=== PATIENT | female | born 2000 | race Hispanic/Latino ===

== ENCOUNTER 2020-02-21 06:47 | Emergency (ER) | payer OTHER ==
[~2020-02-21] VITALS: Ht 162.6 cm; Wt 49.2 kg
[2020-02-21] MEDS ORDERED: MULTCAP PO (06:56)
[2020-02-21] MEDS ORDERED: CALC500C16 PO (06:56)
[2020-02-21] MEDS ORDERED: ONDANSETRON 4MG/2ML VIAL (J2405) IV ONE (07:15)
[2020-02-21] MEDS ORDERED: NS 1,000 ML IV ONE (07:15)
[2020-02-21 07:47] LABS: BASO % 0.1 % (0.0-1.0); EOS % 0.1 % (0.0-3.0); HEMATOCRIT 41.7 % (36.0-47.0); HEMOGLOBIN 14.5 g/dl (12.0-15.5); LYMPH # 1.3 10^3/uL (1.5-5.0); LYMPH % 8.8 % (24.0-44.0); MEAN CORPUSCULAR HEMOGLOBIN 31.5 pg (27.0-33.0); MEAN CORPUSCULAR HGB CONC 34.8 g/dl (32.0-36.5); MEAN CORPUSCULAR VOLUME 90.5 fl (80.0-96.0); MONO # 0.6 10^3/uL (0.0-0.8); MONO % 3.9 % (0.0-5.0); NEUTROPHILS # 12.4 10^3/uL (1.5-8.5); NEUTROPHILS % 86.8 % (36.0-66.0); PLATELET COUNT, AUTOMATED 215 10^3/uL (150-450); RED BLOOD COUNT 4.61 10^6/uL (4.00-5.40); WHITE BLOOD COUNT 14.3 10^3/uL (4.0-10.0)
[2020-02-21] MEDS ORDERED: KETOROLAC 30 MG/ML VIAL (J1885) IV ONE (08:00)
[2020-02-21 08:02] LABS: ALBUMIN 4.4 GM/DL (3.2-5.2); BILIRUBIN,DIRECT 0.1 MG/DL (0.0-0.2); BILIRUBIN,TOTAL 0.4 MG/DL (0.2-1.0)
[2020-02-21 08:09] LABS: INFLUENZA A AMPLIFICATION NEGATIVE (NEGATIVE); INFLUENZA B AMPLIFICATION NEGATIVE (NEGATIVE)
[2020-02-21] MEDS: GASTROGRAFIN SOLUTION 30ML PO SCH ×2 (08:10→08:38)
[2020-02-21] MEDS ORDERED: ISOVUE-370 76% 100ML VIAL (Q9967) As Ordered ONE (09:10)
--- NOTE | 2020-02-21 09:50 | REP ---
Clinical: Acute abdominal pain with nausea and vomiting. Technique: Axial contrast enhanced images from the lung bases to the pubic symphysis using oral (per protocol) and 100 ml Isovue 370 intravenous contrast material with coronal and sagittal re-formations. Findings: Submucosal edema and thickening involving the splenic flexure through sigmoid colon suggests infectious/inflammatory colitis and correlation is recommended. Remainder of the small and large bowel is unremarkable and there is no evidence for obstruction or perforation. Liver, spleen, pancreas, gallbladder, bilateral adrenal glands and kidneys are normal. Pelvis demonstrates normal bladder and age-appropriate uterus/adnexa. No ascites. No free air. No adenopathy. Abdominal aorta and vasculature normal. Musculoskeletal structures are intact. Lung bases are clear. Impression: Findings suggesting infectious/inflammatory colitis involving the descending colon. No evidence for obstruction or perforation. No ascites. Electronically Signed by Lewis Christian MD 02/21/2020 09:41 A
[2020-02-21] MEDS ORDERED: CIPR-249 PO (09:58)
[2020-02-21] MEDS ORDERED: FLAG500T PO (09:58)
[2020-02-21 10:26] VITALS: BP 99/69
--- NOTE | 2020-02-21 10:40 | ED PDOC ---
Post-Departure Follow-Up pt called regarding and cipro/flagyl. advised pt to wait 3-4 hours after dose of antibiotic before . also advised may have increased diarrhea while mother is on antibiotics. MASSIMO RICK PA-C Feb 21, 2020 10:40
== END 2020-02-21 10:30 | disposition home or self-care (01) ==
LOC: M ED 06:47
DX: K52.9 Noninfective gastroenteritis and colitis, unspecified (principal)
CPT/HCPCS: 74177; 80047; 80076; 81001; 83690; 84702; 85025; 87502; 87507; 96361; 96374; 96375; 99284; J1885; J2405; Q9963; Q9967

== ENCOUNTER 2020-03-19 22:40 | Emergency (ER) | payer OTHER ==
[~2020-03-19] VITALS: Ht 162.6 cm; Wt 51.8 kg
[~2020-03-19 22:40] MED LIST: CALC500C16 PO; CIPR-249 PO; FLAG500T PO; MULTCAP PO
[2020-03-19] MEDS ORDERED: NS 1,000 ML IV ONE (23:30)
[2020-03-19] MEDS ORDERED: ONDANSETRON 4MG/2ML VIAL IV ONE (23:30)
[2020-03-19] MEDS ORDERED: MORPHINE 4 MG/ML 1ML VIAL/SYRINGE (J2270) IV ONE (23:30)
[2020-03-19 23:33] LABS: APPEARANCE, URINE CLEAR (CLEAR); BACTERIA, URINE AUTO NEGATIVE (NEGATIVE); BILIRUBIN, URINE AUTO NEGATIVE (NEGATIVE); BLOOD, URINE BLOOD 2+ (NEGATIVE); COLOR, URINE YELLOW (YELLOW); GLUCOSE, URINE (UA) AUTO NEGATIVE (NEGATIVE); KETONE, URINE AUTO TRACE mg/dL (NEGATIVE); LEUKOCYTE ESTERASE, URINE AUTO NEGATIVE (NEGATIVE); NITRITE, URINE AUTO NEGATIVE (NEGATIVE); PROTEIN, URINE AUTO NEGATIVE (NEGATIVE); RBC, URINE AUTO 35 /HPF (0-3); SPECIFIC GRAVITY URINE AUTO 1.028 (1.002-1.035); SQUAMOUS EPITHELIAL CELL UR AU 1 /HPF (0-6); UROBILINOGEN, URINE AUTO 0.2 mg/dL (0.0-2.0); WBC, URINE AUTO 1 /HPF (0-3)
[2020-03-19 23:35] LABS: BASO % 0.6 % (0.0-1.0); EOS # 0.1 10^3/uL (0.0-0.5); EOS % 1.7 % (0.0-3.0); HEMATOCRIT 37.6 % (36.0-47.0); LYMPH # 3.6 10^3/uL (1.5-5.0); LYMPH % 50.2 % (24.0-44.0); MEAN CORPUSCULAR HEMOGLOBIN 31.7 pg (27.0-33.0); MEAN CORPUSCULAR HGB CONC 34.6 g/dl (32.0-36.5); MEAN CORPUSCULAR VOLUME 91.7 fl (80.0-96.0); MONO # 0.3 10^3/uL (0.0-0.8); MONO % 4.6 % (0.0-5.0); NEUTROPHILS # 3.1 10^3/uL (1.5-8.5); NEUTROPHILS % 42.6 % (36.0-66.0); PLATELET COUNT, AUTOMATED 223 10^3/uL (150-450); WHITE BLOOD COUNT 7.3 10^3/uL (4.0-10.0)
[2020-03-19 23:58] LABS: ALBUMIN 3.9 GM/DL (3.2-5.2); ALT/SGPT 27 U/L (12-78); BILIRUBIN,DIRECT < 0.1 MG/DL (0.0-0.2); BILIRUBIN,TOTAL 0.3 MG/DL (0.2-1.0); BLOOD UREA NITROGEN 17 MG/DL (7-18); CALCIUM LEVEL 8.7 MG/DL (8.5-10.1); CARBON DIOXIDE LEVEL 30 MEQ/L (21-32); CHLORIDE LEVEL 107 MEQ/L (98-107); GLUCOSE, FASTING 104 MG/DL (70-100); LIPASE 180 U/L (73-393); POTASSIUM SERUM 3.7 MEQ/L (3.5-5.1); SODIUM LEVEL 141 MEQ/L (136-145); TOTAL PROTEIN 7.4 GM/DL (6.4-8.2)
[2020-03-20] LABS: HCG, SERUM QUALITATIVE NEGATIVE (NEGATIVE)
--- NOTE | 2020-03-20 00:39 | REPVR ---
PROCEDURE INFORMATION: Exam: CT Abdomen And Pelvis Without Contrast Exam date and time: 03/20/2020 12:11 AM Age: 19 years old Clinical indication: Abdominal pain; Generalized; Additional info: Colic TECHNIQUE: Imaging protocol: Computed tomography of the abdomen and pelvis without contrast. Axial, coronal and sagittal reformatted images were created and reviewed. Radiation optimization: All CT scans at this facility use at least one of these dose optimization techniques: automated exposure control; mA and/or kV adjustment per patient size (includes targeted exams where dose is matched to clinical indication); or iterative reconstruction. COMPARISON: CT ABD/PEL W/IV ORAL CONTRAS 02/21/2020 9:29 AM FINDINGS: Liver: Unremarkable. Gallbladder and bile ducts: No radiodense gallstones. No biliary ductal dilatation. Pancreas: Unremarkable. Spleen: Unremarkable. Adrenals: Unremarkable. Kidneys and ureters: No mass. No radiodense calculi. No hydronephrosis. Stomach and bowel: No bowel wall thickening. No obstruction. No pneumatosis. Appendix: Normal. Intraperitoneal space: No free fluid. No organized fluid collection. No free air. Vasculature: Unremarkable. No aneurysm. Lymph nodes: No pathologically enlarged lymph nodes. Bladder: Mild circumferential urinary bladder wall thickening, likely secondary to underdistention. Reproductive: Unremarkable. Bones/joints: No acute osseous abnormality. Soft tissues: Unremarkable. IMPRESSION: 1. Limited noncontrast examination without CT evidence of acute intra-abdominal or pelvic pathology. 2. Additional findings, as above. Electronically signed by: Sharan Balbuena On 03/20/2020 00:38:41 AM
[2020-03-20] MEDS ORDERED: PHENAZOPYRIDINE 100 MG TAB PO ONE (00:45)
[2020-03-20] MEDS ORDERED: BACTRIM 160MG/800MG DS TAB PO ONE (00:45)
[2020-03-20 01:30] VITALS: BP 129/78
[2020-03-20] MEDS ORDERED: BACT800T5 PO (01:41)
[2020-03-20] MEDS ORDERED: PYRI1TAB5 PO (01:41)
[2020-03-20] MEDS ORDERED: ZOFR4TAB16 PO (01:41)
== END 2020-03-20 01:48 | disposition home or self-care (01) ==
LOC: M ED 22:40
DX: N30.90 Cystitis, unspecified without hematuria (principal); N32.89 Other specified disorders of bladder
CPT/HCPCS: 74176; 80048; 80076; 81001; 83690; 84703; 85025; 96361; 96374; 96375; 99284; J2270; J2405

== ENCOUNTER 2020-04-01 01:14 | Emergency (ER) | payer OTHER ==
[~2020-04-01] VITALS: Ht 162.6 cm; Wt 53.1 kg
[~2020-04-01 01:14] MED LIST changes: +BACT800T5 PO; +PYRI1TAB5 PO; +ZOFR4TAB16 PO
[2020-04-01] MEDS ORDERED: ONDANSETRON 4MG/2ML VIAL As Ordered ONE (02:20)
[2020-04-01] MEDS ORDERED: ONDANSETRON 4MG/2ML VIAL IV ONE (02:45)
[2020-04-01] MEDS ORDERED: NS 1,000 ML IV ONE (02:45)
[2020-04-01 02:58] LABS: BASO % 0.3 % (0.0-1.0); EOS # 0.1 10^3/uL (0.0-0.5); EOS % 0.8 % (0.0-3.0); HEMATOCRIT 35.6 % (36.0-47.0); HEMOGLOBIN 12.2 g/dl (12.0-15.5); LYMPH # 2.5 10^3/uL (1.5-5.0); LYMPH % 26.2 % (24.0-44.0); MEAN CORPUSCULAR HEMOGLOBIN 31.4 pg (27.0-33.0); MEAN CORPUSCULAR HGB CONC 34.3 g/dl (32.0-36.5); MEAN CORPUSCULAR VOLUME 91.8 fl (80.0-96.0); MONO # 0.5 10^3/uL (0.0-0.8); MONO % 4.9 % (0.0-5.0); NEUTROPHILS # 6.4 10^3/uL (1.5-8.5); NEUTROPHILS % 67.4 % (36.0-66.0); PLATELET COUNT, AUTOMATED 206 10^3/uL (150-450); RED BLOOD COUNT 3.88 10^6/uL (4.00-5.40); WHITE BLOOD COUNT 9.5 10^3/uL (4.0-10.0)
[2020-04-01 03:21] LABS: ALBUMIN 3.8 GM/DL (3.2-5.2); ALT/SGPT 38 U/L (12-78); BILIRUBIN,DIRECT < 0.1 MG/DL (0.0-0.2); BILIRUBIN,TOTAL 0.3 MG/DL (0.2-1.0); LIPASE 139 U/L (73-393); TOTAL PROTEIN 6.9 GM/DL (6.4-8.2)
--- NOTE | 2020-04-01 03:38 | REPVR ---
PROCEDURE INFORMATION: Exam: US Abdomen Limited, Right Upper Quadrant Exam date and time: 04/01/2020 3:14 AM Age: 19 years old Clinical indication: Abdominal pain; Acute; Additional info: Ruq abd pain TECHNIQUE: Imaging protocol: Real-time ultrasound of the abdomen with image documentation. Examination was focused on the right upper quadrant. COMPARISON: CT ABD PELVIS W/O CONTRAST 03/20/2020 12:15 AM FINDINGS: Liver: Normal. No masses. Gallbladder: Normal. No gallstones. There is no gallbladder wall thickening. Common bile duct: Normal. No stones. No dilation. Pancreas: Visualized pancreas is unremarkable. Right kidney: Normal. No mass. No hydronephrosis. IMPRESSION: No acute findings. Electronically signed by: Balta Masterson On 04/01/2020 03:37:59 AM
[2020-04-01 03:40] LABS: HCG, SERUM QUALITATIVE NEGATIVE (NEGATIVE)
[2020-04-01] MEDS ORDERED: ZOFR4TAB16 PO (05:17)
[2020-04-01 05:43] VITALS: BP 103/58
== END 2020-04-01 05:44 | disposition home or self-care (01) ==
LOC: M ED 01:14
DX: R10.11 Right upper quadrant pain (principal); R11.2 Nausea with vomiting, unspecified
CPT/HCPCS: 76705; 80047; 80076; 81001; 83690; 84703; 85025; 96361; 96374; 99284; J2405

== ENCOUNTER 2021-03-20 14:46 | Outpatient (CLI) | payer OTHER ==
[~2021-03-20] VITALS: Ht 162.6 cm; Wt 60.7 kg
[2021-03-20 15:06] VITALS: BP 109/68
[2021-03-20 17:45] VITALS: BP 117/71
[2021-03-20 19:23] VITALS: BP 106/63
[2021-03-20 19:43] LABS: HEMATOCRIT 29.4 % (36.0-47.0); HEMOGLOBIN 9.9 g/dl (12.0-15.5); MEAN CORPUSCULAR HEMOGLOBIN 30.5 pg (27.0-33.0); MEAN CORPUSCULAR HGB CONC 33.7 g/dl (32.0-36.5); MEAN CORPUSCULAR VOLUME 90.5 fl (80.0-96.0); PLATELET COUNT, AUTOMATED 166 10^3/uL (150-450); RED BLOOD COUNT 3.25 10^6/uL (4.00-5.40); WHITE BLOOD COUNT 6.3 10^3/uL (4.0-10.0)
[2021-03-20 20:07] LABS: ALBUMIN 2.7 GM/DL (3.2-5.2); ALT/SGPT 15 U/L (12-78); BILIRUBIN,DIRECT < 0.1 MG/DL (0.0-0.2); BILIRUBIN,TOTAL 0.3 MG/DL (0.2-1.0); TOTAL PROTEIN 5.9 GM/DL (6.4-8.2)
--- NOTE | 2021-03-20 21:38 | IPN ---
PROGRESS NOTE DATE: 03/20/2021 SUBJECTIVE: Kiara is a 20-year-old 3, para 1, 0, 1, 1 at reported 33 and 1/7 weeks, EDC of 05/07/2021 based on last menstrual period, she presents to labor and delivery today with a report of itching all over her entire body including her abdomen, hands and feet. This started approximately three weeks ago and has worsened over the last few days. She denies vaginal bleeding and leakage of fluid. She denies regular painful contractions and the fetus has been active. She is an unregistered patient. She does not have a care provider in the area. She moved here approximately one month ago on February 21. She reports that she had been getting care in the [facility]. There have been several attempts over the last three hours to retrieve her medical records and they have been thus far unsuccessful. So her history is based on a verbal report from the patient. OBSTETRIC HISTORY: In 2015, elective termination of . On 02/11/2019, vaginal delivery at 38 weeks gestation following an induction of labor due to cholestasis. She does report that she had intra- preeclampsia and then had a uterine infection likely chorioamnionitis from what the patient described that was diagnosed at the time of delivery. OBSTETRIC LABS: We do have a view of that through her patient portal that she shared with us on her mobile phone. Her blood type is O+. Antibody screen is negative. Gestational diabetic screen normal at 115. Gonorrhea and Chlamydia negative. Urine culture no growth. Rubella equivocal. Hepatitis B surface antigen negative. Hepatitis C antibody negative. Hemoglobin A1C was 4.6. PAST MEDICAL HISTORY: Noncontributory. PAST SURGICAL HISTORY: Elective termination of . FAMILY HISTORY: Diabetes. SOCIAL HISTORY: She is to an active duty soldier. She is a nonsmoker. Denies alcohol and drug use. She denies history of STDs and denies history of abuse; physical, sexual and emotional. ALLERGIES: No known drug allergies. MEDICATIONS: None. She reports she is not taking her vitamin. OBJECTIVE: Temperature 97.6, pulse 69, respirations 18, blood pressures are completely normotensive; upon arrival it was 109/68 and several hours later it was 117/71. The heart rate is 135 with moderate variability. Positive accelerations noted. No decelerations observed. There is an occasional contraction. Sterile vaginal exam is deferred. Her abdomen appears soft and nontender, gravid, there is no rash. It does not appear that she has created any petechiae or scratches with her itching. ASSESSMENT: Intrauterine at 33 and 1/7 weeks. heart rate is category 1. PLAN: Liver profile, CBC and bile acids. I did review with the patient that the bile acids take approximately 7 to 10 days to return the results and that it is imperative that she seek care immediately. She has been in the area for over a month and has yet to do so. She was provided with three care providers in the area that she can reach out to to schedule an appointment. My plan is to discharge her home as long as her liver enzymes are normal. She is to call [facility] to access her bile acid report in one week's time to see if they have returned a result. I did review signs and symptoms of labor, movement counts, danger signs to report and access to this hospital for emergencies. The patient had all of her questions answered and once labs are returned, she maybe discharged home.
== END 2021-03-20 20:15 | disposition home or self-care (01) ==
LOC: M LDO 14:46
PROVIDERS: ATTEND Advanced Practice Midwife
DX: O99.713 Diseases of the skin and subcutaneous tissue complicating pregnancy, third trimester (principal); L29.9 Pruritus, unspecified; Z3A.33 33 weeks gestation of pregnancy
CPT/HCPCS: 36415; 59025; 80076; 82239; 85027; G0378; G0463

== ENCOUNTER → 2021-03-29 | Outpatient (REF) | payer OTHER ==
[~2021-03-29] MED LIST changes: +URSO300C3 PO
== END ==
LOC: M SFHCWAGY 14:55
PROVIDERS: ATTEND Advanced Practice Midwife
DX: O99.613 Diseases of the digestive system complicating pregnancy, third trimester (principal)

== ENCOUNTER 2021-04-02 09:05 | Outpatient (CLI) | payer OTHER ==
[~2021-04-02] VITALS: Ht 162.6 cm; Wt 61.8 kg
[~2021-04-02 09:05] MED LIST changes: -URSO300C3 PO
[2021-04-02] MEDS ORDERED: URSO300C3 PO (09:16)
[2021-04-02 09:20] VITALS: BP 124/74
[2021-04-02] MEDS ORDERED: BETAMETHASONE SOLUSPAN 6MG/ML 5ML VIAL (J0702 PER 3MG) IM ONE (09:25)
[2021-04-02 09:57] VITALS: BP 97/54
--- NOTE | 2021-04-22 13:01 | IPNPDOC ---
Obstetrical Progress Note Date of Service April 02, 2021 Subjective Patient presents for betamethasone injection. A pre-37 week delivery is planned. She presented to the hospital only for this injection and had no other complaints. She denied any vaginal bleeding, loss of fluid or uterine contractions. She reported regular movement. Her blood pressure was normotensive, had a normal heart rate, and was afebrile. Antepartum testing reassuring , thus far. She was discharged home with routine third trimester precautions. Assessment and Plan Status: Reassuring Additional Comments Return in 24 hours for second betamethasone injection PONCHO TREADWELL DO April 22, 2021 13:01
== END 2021-04-02 10:06 | disposition home or self-care (01) ==
LOC: M LDO 09:05
PROVIDERS: ATTEND Advanced Practice Midwife
DX: O26.613 Liver and biliary tract disorders in pregnancy, third trimester (principal); K83.1 Obstruction of bile duct; Z3A.35 35 weeks gestation of pregnancy
CPT/HCPCS: 96372; G0378; G0463; J0702

== ENCOUNTER → 2021-04-03 | Outpatient (CLI) | payer OTHER ==
[~2021-04-03] MED LIST changes: +URSO300C3 PO
--- NOTE | 2021-04-04 07:20 | REP ---
INDICATION: CHOLESTASIS,GROWTH,YING,BPP COMPARISON: None. TECHNIQUE: Transabdominal obstetrical ultrasound with color Doppler evaluation. FINDINGS: Examination demonstrates a single live intrauterine in cephalic presentation. motion is identified by technologist. Placenta is noted anterior and grade 2 without evidence for placenta previa or abruption. Amniotic fluid volume is normal. Cervix measures 3.0 cm in length and appears closed.. Gestational age by LMP 35 weeks 1 day with HARLEEN 05/07/2021. Gestational age by current measurements 34 weeks 4 days with HARLEEN 05/11/2021. FHR equals 138 beats per minute. Amniotic fluid index: 8.3 cm (7.9-24.9) Biophysical profile score: 8/8. Estimated weight by current measurements 2600 g (58th percentile). Umbilical artery 1 SD ratio: 2.70 (1.67-3.58) Umbilical artery 2 SD ratio: 1.91 (1.67-3.58). IMPRESSION: Single live advanced gestation in cephalic presentation demonstrating appropriate estimated weight. Amniotic fluid index and biophysical profile score are normal. <Electronically signed by Lewis Christian > 04/04/21 0789
== END ==
LOC: M WHC 11:44
PROVIDERS: ATTEND Advanced Practice Midwife
DX: Z36.89 Encounter for other specified antenatal screening (principal); Z3A.34 34 weeks gestation of pregnancy

== ENCOUNTER → 2021-04-03 | Outpatient (CLI) | payer OTHER ==
[~2021-04-03] VITALS: Ht 162.6 cm; Wt 61.6 kg
[~2021-04-03] MED LIST changes: +BETAMETHASONE SOLUSPAN 6MG/ML 5ML VIAL (J0702 PER 3MG) IM ONE
[2021-04-03 09:47] VITALS: BP 113/66
--- NOTE | 2021-04-03 11:03 | IPN ---
PROGRESS NOTE DATE: 04/03/2021 SUBJECTIVE: Kiara is a 20-year-old 3 para 1-0-1-1, she is 35 and 1/7th weeks gestation, EDC of 05/07/2021 based on patient's report. She presents to Labor and Delivery today for betamethasone injection #2 as she is currently diagnosed with cholestasis. She denies vaginal bleeding, leakage of fluid, the fetus has been active. care was initiated in the [place] in the first trimester, her course was complicated by inadequate care and recent diagnosis of cholestasis. She has been taking her Ursodiol 300 mg three times a day for approximately one week. She has undergone some antepartal testing which has been reassuring. She is scheduled for a growth ultrasound later today. She is also scheduled for induction of labor at 36 weeks and 1 day per consult with Dr. Julio Longoria. OBJECTIVE: Temperature 99.8, pulse 88, respirations 16, blood pressure 113/66, heart rate is 135 with moderate variability, positive accelerations, no decelerations. There is an occasional contraction, palpates mild. Betamethasone injection #2, 12 mg IM has been administered. Sterile vaginal exam: Deferred. ASSESSMENT: Intrauterine at 35 and 1/7th weeks, heart rate Category 1, cholestasis. PLAN: Keep appointment today for a growth ultrasound, keep next appointment and NSV scheduled on 04/05. I reviewed signs and symptoms of pre-term labor, movement counts, danger signs to report and access to care. The patient has had her questions answered and agrees with the plan. She will be discharged home.
== END ==
LOC: M LDO 09:36
PROVIDERS: ATTEND Advanced Practice Midwife
DX: O26.613 Liver and biliary tract disorders in pregnancy, third trimester (principal); K71.0 Toxic liver disease with cholestasis; O09.33 Supervision of pregnancy with insufficient antenatal care, third trimester; Z3A.35 35 weeks gestation of pregnancy
CPT/HCPCS: 76816; 76819; 76820; 96372; G0378; G0463; J0702

== ENCOUNTER 2021-04-10 08:26 | Inpatient (IN) | payer OTHER ==
[2021-04-10] VITALS (10 sets, daily range): BP systolic 98–145; BP diastolic 53–89
[~2021-04-10] VITALS: Ht 162.6 cm; Wt 62.9 kg
[~2021-04-10 08:26] MED LIST changes: -BETAMETHASONE SOLUSPAN 6MG/ML 5ML VIAL (J0702 PER 3MG) IM ONE
[2021-04-10] MEDS ORDERED: OXYTOCIN INJ 10 UNITS/ML VIAL (J2590) IM PRN (09:05)
[2021-04-10] MEDS ORDERED: METHYLERGONOVINE MALEATE 0.2 MG/ML VIAL (J2210) IM PRN (09:05)
[2021-04-10] MEDS ORDERED: OXYTOCIN DRIP 30 UNITS in IV 1 EA IV PRN (09:05)
[2021-04-10] MEDS ORDERED: LIDOCAINE 1% MDV 20ML VIAL INFIL PRN (09:05)
[2021-04-10 09:18] LABS: HEMATOCRIT 29.3 % (36.0-47.0); HEMOGLOBIN 9.5 g/dl (12.0-15.5); MEAN CORPUSCULAR HEMOGLOBIN 28.8 pg (27.0-33.0); MEAN CORPUSCULAR HGB CONC 32.4 g/dl (32.0-36.5); MEAN CORPUSCULAR VOLUME 88.8 fl (80.0-96.0); PLATELET COUNT, AUTOMATED 159 10^3/uL (150-450); WHITE BLOOD COUNT 6.9 10^3/uL (4.0-10.0)
[2021-04-10] MEDS: miSOPROStol 50MCG 1/2 TABLET PO SCH ×2 (09:33→13:30)
--- NOTE | 2021-04-10 10:08 | HPE ---
HISTORY AND PHYSICAL DATE OF ADMISSION: 04/10/2021 HISTORY OF PRESENT ILLNESS: Kiara is a 20-year-old 3, para 1-0-1-1 at 36-1/7ths weeks gestation, EDC of 05/07/2021 based on first trimester ultrasound, who presents to Labor and Delivery today for induction of labor due to cholestasis. care was initiated in the [place]. She had inadequate care with a late transfer of care to [facility] at 34 weeks and a diagnosis of cholestasis. Bile acids were 46.5. She was started on ursodiol 300 mg three times a day at that time. She denies vaginal bleeding, leakage of fluid, and painful contractions. The fetus has been active. Other problems during her and care is a history of preeclampsia for which she had taken aspirin 81 mg daily. She is beta complete last week and inadequate care. OBSTETRIC HISTORY: 1. #1 in 2016, elective termination. 2. #2 February 11, 2019, 38 weeks gestation, 6 pound 11 ounce female, vaginal delivery following an induction of labor due to cholestasis. She reports intrapartum preeclampsia and chorioamnionitis. OBSTETRIC LABS: Not complete. O positive, antibody screen negative, RPR negative, hep C negative, hep B negative, rubella nonimmune, hemoglobin A1c 4.8 in the first trimester. Gestational diabetic screening never performed, and her GBS is negative. She did undergo a recent growth ultrasound on April 03, 2021, with an estimated weight of 2600 grams, 58th percentile, fluid was 8.3 cm, BPP was 8 out of 8, and the fetus was in cephalic presentation. PAST MEDICAL HISTORY: 1. Intrapartum preeclampsia. 2. Chorioamnionitis. 3. Cholestasis. PAST SURGICAL HISTORY: Elective termination of . FAMILY HISTORY: Diabetes. SOCIAL HISTORY: The patient is . Her is at bedside and supportive. She is a nonsmoker. Denies alcohol and drug use. Denies history of sexually transmitted infections and denies history of abuse, physical, sexual, and emotional. ALLERGIES: No known drug allergies. CURRENT MEDICATIONS: 1. Ursodiol 300 mg p.o. t.i.d. 2. vitamin. PHYSICAL EXAMINATION: Vital signs: Temperature 98.1, pulse 117, respirations 16, BP 109/71. She is alert and oriented x3. heart rate is 150 with moderate variability, positive accelerations, negative decelerations. There is no pattern of regular contractions. Her abdomen is gravid, cephalic presentation. Estimated weight 2800 grams. Vaginal exam: 2 cm dilated, 50% effaced, -3 station, posterior and soft. No show with the exam. ASSESSMENT: 1. Intrauterine at 36-1/7ths weeks. 2. heart rate category 1. 3. Cholestasis. PLAN: Per consult with Dr. Arabella Rodriguez admit the patient to Labor and Delivery, routine laboratories, out of bed ad.trent., regular diet at this time. I plan to start misoprostol 50 mcg p.o. for cervical ripening. I will reassess the patient after 1-2 doses of misoprostol and likely start Pitocin and consider assisted rupture of membranes for labor augmentation. The patient reports that she will likely cope with her labor physiologically. If she decides to have an epidural, that has been ordered. I did review risks, benefits, and alternatives. All of her questions and her partner's questions have been answered. She has been verbally consented for emergency surgery and blood products of they are necessary. I anticipate cervical ripening, active labor, and a vaginal delivery.
[2021-04-10 16:28] LABS: HIV 1&2 SCREEN CENTAUR NEGATIVE (NEGATIVE)
[2021-04-10] MEDS ORDERED: OXYTOCIN DRIP 30 UNITS in IV 1 EA IV SCH (17:25)
[2021-04-10] MEDS ORDERED: LR 1,000 ML IV SCH (17:25)
[2021-04-10] MEDS ORDERED: DIBUCAINE 1% OINTMENT 30GM TOP PRN (21:15)
[2021-04-10] MEDS ORDERED: ACETAMINOPHEN TAB 650MG DOSE (2X325MG) PO PRN (21:15)
[2021-04-10] MEDS ORDERED: IBUPROFEN 600MG TAB PO PRN (21:15)
[2021-04-10] MEDS ORDERED: METHYLERGONOVINE MALEATE 0.2 MG TAB PO PRN (21:15)
[2021-04-10] MEDS ORDERED: ACETAMINOPHEN 500 MG TAB PO PRN (21:15)
[2021-04-10] MEDS ORDERED: DOCUSATE SODIUM 100MG CAPSULE PO PRN (21:15)
[2021-04-10] MEDS ORDERED: MEASLES,MUMPS,RUBELLA VACCINE INJ (MMR-II) (90707) SC SCH (21:15)
[2021-04-10] MEDS ORDERED: RHOGAM 300 MCG (1500 IU) INJ (J2790) IM SCH (21:15)
[2021-04-11] MEDS: IBUPROFEN 800 MG TAB PO PRN ×2 (01:21→16:32)
[2021-04-11 06:00] VITALS: BP 109/56
[2021-04-11] MEDS: PRENATAL VITAMINS CHEWABLE TABLET PO SCH (08:46)
--- NOTE | 2021-04-11 08:58 | DN ---
DELIVERY NOTE DATE OF DELIVERY: 04/10/2021 TIME OF : 2049 GENDER: Male APGARS: 8 and 9 LACERATIONS: ANESTHESIA: ESTIMATED BLOOD LOSS: 200 mL. COUNTS: Correct and verified. DESCRIPTION OF DELIVERY: Kiara is a 20-year-old 3, para 1-1-1-2 now, admitted to labor and delivery for induction of labor due to cholestasis. Misoprostol and IV Pitocin were used and labor did ensue. She had assisted rupture of membranes for a large amount of clear fluid at 2033. She reached complete dilation at 2048. She pushed to a normal spontaneous vaginal delivery of a live male infant in occiput anterior (OA) position with restitution to right occiput transverse (ROT) position at 2049. There was no nuchal cord. The shoulders delivered spontaneously and the corpus immediately followed. The was placed on the maternal abdomen crying and active. Mouth and nares bulb suctioned. Cord was clamped x2 once pulsations ceased and cut by the father of the baby under my direction. Cord blood was obtained. Spontaneous expulsion of an intact placenta with three-vessel cord by Hammonds mechanism was at 2052. Uterine hemostasis achieved with IV Pitocin rapid infusion and uterine fundal massage. Estimated blood loss 200 mL. Perineum and vagina inspected noted to be intact. Alta male weighed 5 pounds 9 ounces (2510 grams). Apgars 8 and 9. Mom is going to breastfeed her son and the family has named him Chad. At the close of delivery, lap counts and instrument counts were correct and verified.
[2021-04-11 18:05] VITALS: BP 132/65
[2021-04-12 06:00] VITALS: BP 102/61
[2021-04-12] MEDS: PRENATAL VITAMINS CHEWABLE TABLET PO SCH (09:01)
== END 2021-04-12 11:35 | disposition home or self-care (01) | DRG 805 ==
LOC: M LDI 08:26 → M OBS 23:10
PROVIDERS: ADMIT Advanced Practice Midwife; ATTEND Advanced Practice Midwife
PROC: 10E0XZZ Delivery of Products of Conception, External Approach (ICD-10-PCS; principal; 2021-04-10)
PROC: 3E033VJ Introduction of Other Hormone into Peripheral Vein, Percutaneous Approach (ICD-10-PCS; 2021-04-10)
PROC: 10907ZC Drainage of Amniotic Fluid, Therapeutic from Products of Conception, Via Natural or Artificial Opening (ICD-10-PCS; 2021-04-10)
DX: O26.62 Liver and biliary tract disorders in childbirth (principal); Z37.0 Single live birth; K83.1 Obstruction of bile duct; Z3A.36 36 weeks gestation of pregnancy

== ENCOUNTER 2021-07-14 13:34 | Emergency (ER) | payer OTHER ==
[~2021-07-14] VITALS: Ht 162.6 cm; Wt 58.7 kg
[2021-07-14 13:35] VITALS: BP 124/74
== END 2021-07-14 15:08 | disposition left against medical advice (07) ==
LOC: M ED 13:34
DX: Z53.29 Procedure and treatment not carried out because of patient's decision for other reasons (principal)

== ENCOUNTER 2021-12-01 19:20 | Emergency (ER) | payer OTHER ==
[~2021-12-01] VITALS: Ht 162.6 cm; Wt 58.1 kg
[2021-12-01 21:55] LABS: BASO % 0.4 % (0.0-1.0); EOS # 0.2 10^3/uL (0.0-0.5); HEMATOCRIT 36.2 % (36.0-47.0); HEMOGLOBIN 12.4 g/dl (12.0-15.5); LYMPH # 3.4 10^3/uL (1.5-5.0); LYMPH % 43.1 % (24.0-44.0); MEAN CORPUSCULAR HEMOGLOBIN 30.7 pg (27.0-33.0); MEAN CORPUSCULAR HGB CONC 34.3 g/dl (32.0-36.5); MEAN CORPUSCULAR VOLUME 89.6 fl (80.0-96.0); MONO # 0.3 10^3/uL (0.0-0.8); MONO % 4.3 % (2.0-8.0); NEUTROPHILS # 3.9 10^3/uL (1.5-8.5); NEUTROPHILS % 49.8 % (36.0-66.0); PLATELET COUNT, AUTOMATED 245 10^3/uL (150-450); RED BLOOD COUNT 4.04 10^6/uL (4.00-5.40); WHITE BLOOD COUNT 7.9 10^3/uL (4.0-10.0)
--- NOTE | 2021-12-01 22:10 | REPVR ---
PROCEDURE INFORMATION: Exam: XR Chest Exam date and time: 12/01/21 (8:49pm) Age: 21 years old Clinical indication: Chest pain TECHNIQUE: Imaging protocol: Portable CXR Views: 1 view COMPARISON: CT ABDOMEN PELVIS of 03/20/20 FINDINGS: Lungs: Unremarkable. No consolidation. Pleural spaces: Unremarkable. No pleural effusions. No pneumothorax. Heart/Mediastinum: Unremarkable. No cardiomegaly. Bones/joints: Unremarkable. IMPRESSION: No acute findings. Clearlung soares. Electronically signed by: Lias Harris On 12/01/2021 22:09:51 PM
[2021-12-01 22:24] LABS: BLOOD UREA NITROGEN 14 MG/DL (7-18); CALCIUM LEVEL 8.6 MG/DL (8.5-10.1); CARBON DIOXIDE LEVEL 26 MEQ/L (21-32); CHLORIDE LEVEL 107 MEQ/L (98-107); CREATININE FOR GFR 0.57 MG/DL (0.55-1.30); GLOMERULAR FILTRATION RATE > 60.0 (>60); GLUCOSE, FASTING 93 MG/DL (70-100); SODIUM LEVEL 141 MEQ/L (136-145)
[2021-12-01 23:15] VITALS: BP 114/74
--- NOTE | 2021-12-02 18:31 | ECGEPIP ---
[facility] - ED Test Date: 2021-12-01 Pat Name: ERICKSON HOFFMANN Department: Room: - Gender: Female Pharmacy Director: KG : [id number] Requested By: Ruthie Enrique Order Number: [id number] Reading MD: Ruthie Enrique Measurements Intervals Campbell Rate: 67 P: 51 VT: 158 QRS: 91 QRSD: 86 T: 49 QT: 398 QTc: 420 Interpretive Statements Normal sinus rhythm Rightward axis No prior Electronically Signed on 12-02-2021 18:31:02 EST by Ruthie Enrique
== END 2021-12-01 23:22 | disposition home or self-care (01) ==
LOC: M ED 19:20
DX: R05.9 Cough, unspecified (principal); R52 Pain, unspecified